=== PATIENT | female | born 1980 | race Caucasian/White ===

== ENCOUNTER 2024-07-12 07:03 | Observation (INO) ==
--- NOTE | 2024-07-02 13:17 | Anesthesiology Consultation ---
Date of Service July 02, 2024 Assessment & Plan (1) Encounter for pre-operative examination: - Check test DOS - Infectious disease screening: Per assessment on 07/02/24- No known recent infectious disease contacts or current infectious disease symptoms. Chart Review Chart Review: Acceptable Risk for Surgery and Patient NOT seen in Pre Admission Testing History Surgery Operation Date: 04/19/24 08:50 Proposed Procedures p Exam Under Anesthesia, Dilation and Curettage - Anshul Trinh MD s Myosure Polypectomy, Novasure Endometrial Ablation - Anshul Trinh MD Operation Date: 07/12/24 07:00 Proposed Procedures p Total Laparoscopic Hysterectomy, Bilateral Salpingectomy and Cystoscopy, Possible Laparotomy - Anshul Trinh MD Height/Weight Height: 5 ft 5 in Weight: 107.501 kg Allergies Allergy/AdvReac Type Severity Reaction Status Date / Time No Known Allergies Allergy Verified 07/02/24 11:54 Medications Home Medications Medication Instructions Recorded Confirmed Last Taken bupropion HCl 150 mg tablet,12 hr 150 mg PO BID 07/02/24 07/02/24 Unknown sustained-release ferrous sulfate 325 mg (65 mg 325 mg PO QAM 07/02/24 07/02/24 Unknown iron) tablet,delayed release losartan 25 mg tablet 25 mg PO QAM 07/02/24 07/02/24 Unknown naltrexone 50 mg tablet 50 mg PO UD 07/02/24 07/02/24 Unknown omeprazole 20 mg tablet,delayed 20 mg PO QAM 07/02/24 07/02/24 Unknown release Past Medical History Medical History Anemia Arthritis GERD (gastroesophageal reflux disease) History of kidney stones no surgery required Hx of migraines Hypertension Past Family History Family History Other No family history of adverse response to anesthesia Past Surgical History Surgical History H/O wrist surgery left History of bilateral tubal ligation History of tooth extraction Social History Smoking Status: Current every day smoker Smoking cigarettes per day: 4 cig daily>advised Do You Dip or Chew Tobacco: No Hx Alcohol Use: No substance use type: does not use Testing Laboratory Results 06/20/24 WBC 8.86 H/H 12.7/39.6 PLATELETS 337 SODIUM 139 POTASSIUM 4.7 CHLORIDE 104 CO2 25 BUN 15 CREATININE 0.7 GLUCOSE 93
[~2024-07-12 07:03] MED LIST: LACTATED RINGER'S 1,000 ML IV SCH; LR 15ML/HR IV SCH
[2024-07-12] MEDS: SODIUM CHLORIDE 0.9% 1,000 ML IV SCH (08:31)
--- NOTE | 2024-07-12 08:40 | History & Physical Bridge Note ---
Date of Service July 12, 2024 History & Physical Bridge Note I have examined the patient, reviewed the History & Physical and in the interval since the performance of the History & Physical I have noted the following changes of clinical significance: no changes noted
[2024-07-12] MEDS ORDERED: MIDAZOLAM HCL 1 MG/ML 2ML VIAL ONE (08:53)
[2024-07-12] MEDS ORDERED: fentaNYL citrate PF 100 MCG/2 ML VIAL ONE ×2 (08:53→10:58)
[2024-07-12] MEDS ORDERED: ROCURONIUM BROMIDE 10 MG/ML 5 ML VIAL IV ONE ×3 (08:54→11:40)
[2024-07-12] MEDS ORDERED: PROPOFOL IV EMULSION 10 MG/ML 20 ML VIAL IV ONE (08:55)
[2024-07-12] MEDS ORDERED: DEXAMETHASONE SOD INJ 4 MG/ML VIAL ONE ×2 (08:59)
[2024-07-12] MEDS ORDERED: DROPERIDOL 5 MG/2 ML VIAL IV PRN (09:00)
[2024-07-12] MEDS ORDERED: ATROPINE SULFATE 0.1 MG/ML 10ML SYR IV PRN (09:00)
[2024-07-12] MEDS ORDERED: fentaNYL citrate PF 100 MCG/2 ML VIAL IV PRN (09:00)
[2024-07-12] MEDS ORDERED: ONDANSETRON INJ 2 MG/ML 2 ML VIAL ONE (09:00)
[2024-07-12] MEDS ORDERED: ePHEDrine sulfate 50 MG/ML AMP IV PRN (09:00)
[2024-07-12] MEDS: ceFAZolin 2000MG 2,000 MG/15 ML SYR IV SCH (09:24)
[2024-07-12] MEDS ORDERED: KETAMINE HCL 10MG/ML SYR ONE (09:32)
[2024-07-12] MEDS ORDERED: METHYLENE BLUE 0.5% 10 ML VIAL ONE (10:53)
[2024-07-12] MEDS ORDERED: SUGAMMADEX SODIUM 200 MG/2 ML VIAL IV ONE (11:20)
[2024-07-12] MEDS: BUPIVACAINE/EPINEPHRINE 0.5% MPF 1:200,000 30 ML VIAL ONE (11:22)
[2024-07-12] MEDS: FLOSEAL HEMOSTATIC MATRIX 10ML TOP ONE (11:22)
[2024-07-12] MEDS ORDERED: HYDROmorphone INJ 2 MG/ML SYR/VIAL ONE (12:04)
[2024-07-12] MEDS ORDERED: KETOROLAC 30 MG/ML VIAL ONE (12:19)
[2024-07-12] MEDS: DIATRIZOATE MEGLUMINE 30% 100ML VIAL INSTIL ONE (12:44)
--- NOTE | 2024-07-12 12:47 | Operative Report ---
[facility] Post Operative Report Pre & Post Diagnosis Operation Date: 07/12/24 08:50 Pre-Op Diagnosis: Menorrhagia, Endometrial Polyp on Ultrasound Post-Op Diagnosis: Menorrhagia, Endometrial Polyp on Ultrasound I identified the patient and participated in the time-out.: Yes Procedure Operation Date: 07/12/24 08:50 Actual Procedures p Total Laparoscopic Hysterectomy, Bilateral Salpingectomy and Cystoscopy(Bilateral) - Anshul Trinh MD s Cystoscopy, Left Retrogradepylogram with radiographic interpretation (Left) - Miles Inman MD Surgeon Miles Inman MD Senior Marketing Coordinator None Estimated Blood Loss 5 Findings See Below Normal left retrograde pyelogram with no narrowing or extravasation. Contrast completely drained from kidney. Specimens None Drains None Anesthesia Type General Complications none Indications 43-year-old female who is currently anesthetized in the OR for a laparoscopic hysterectomy and bilateral salpingectomy. JUNIOR DESIGNER did a cystoscopy at the end of the case and did not see urine effluxing from the left ureter so urology was consulted. Patient was already anesthetized so consent was implied as this was deemed emergent. Description of Procedure Patient was already anesthetized and laying supine on the table. Fuentes catheter been removed. I confirmed with the operating surgeon that the left side was the side of concern. I inserted a 21 Vincentian rigid cystoscope per urethra into the bladder. Cystoscopy revealed no lesions or concern for injury. Turned my attention to the left ureteral orifice and intubated this with a 5 Vincentian open- ended catheter. I shot a left retrograde pyelogram which showed no extravasation or narrowing. Contrast made it all the way up into the kidney. I then watched the contrast drained out of the ureter and shot several other films which showed all of the contrast draining out of the system. I did no concern for injury and suspect this was a peristalsis. I do not think there is any indication for stenting at this point. I turned my attention to thethe right ureteral orifice and did see this efflux of urine. Bladder was emptied and scope was removed. At this point I turned the case back over to JUNIOR DESIGNER. I attest to the content of the Intraoperative Record and any orders documented therein. Any exceptions are noted below.
[2024-07-12] MEDS ORDERED: oxyCODONE/ACETAMINOPHEN 5mg/325mg TAB PO PRN (13:15)
[2024-07-12] MEDS ORDERED: MAGNESIUM HYDROXIDE SUSP 30 ML UDC PO PRN (13:15)
[2024-07-12] MEDS ORDERED: KETOROLAC 30 MG/ML VIAL IV PRN (13:15)
[2024-07-12] MEDS ORDERED: ZOLPIDEM TARTRATE 5 MG TAB PO PRN (13:15)
--- NOTE | 2024-07-12 13:17 | Anesthesiology Progress Note ---
Date of Service July 12, 2024 Anesthesia Post Procedure Vital Signs Vital Signs: Temp Pulse Resp BP Pulse Ox O2 Del Method 07/12/24 08:12 36.8 C 89 20 148/93 H 98 Room Air Transfer of Care Handoff Completed per policy Notes Mental Status: alert / awake / arousable Patient Amnestic to Procedure: Yes Nausea / Vomiting: adequately controlled Pain: adequately controlled Airway Patency, RR, SpO2: stable & adequate BP & HR: stable & adequate Hydration State: stable & adequate Anesthetic Complications: no major complications apparent
--- NOTE | 2024-07-12 13:19 | Fluoroscopy Report ---
FL retrograde includes kub CLINICAL HISTORY: Cystoleft-sided cystourethrogram COMPARISON STUDY: None FLUOROSCOPY TIME: 11.0 seconds FLUOROSCOPY IMAGES: 14 EXPOSURE DOSE: 2.4539 mGy FINDINGS: Left-sided ureteroscope with injection of contrast. Filling defects are noted within the pr oximal left ureter suggestive of probable air bubbles. No extravasation of contrast identified to sug gest a ureteral injury. No hydronephrosis IMPRESSION: Fluoroscopic assistance as above. ACT 112: Negative or not required by law. Electronically signed by: Iron Starkey M.D. 07/12/2024 1:15 PM
--- NOTE | 2024-07-12 13:29 | Operative Report ---
Post Operative Report Pre & Post Diagnosis Operation Date: 07/12/24 08:50 Pre-Op Diagnosis: Menorrhagia, Endometrial Polyp on Ultrasound Post-Op Diagnosis: Menorrhagia, Endometrial Polyp on Ultrasound I identified the patient and participated in the time-out.: Yes Procedure Operation Date: 07/12/24 08:50 Actual Procedures p Total Laparoscopic Hysterectomy, Bilateral Salpingectomy and Cystoscopy(Bilateral) - Anshul Trinh MD s Cystoscopy, Left Retrogradepylogram(Left) - Miles Inman MD Surgeon Anshul Trinh MD Home Supervisor [place] PAC Estimated Blood Loss 5 Findings Consistent with Post-Op Diagnosis Normal female escutcheon. Cervix and vagina appear grossly normal. Laparoscopic findings showed a 14 to 16-week size uterus. Left and right tubes and ovaries appear grossly normal. Both ureters identified. Fluids Estimated blood loss is 5 mL. IV fluids 1300 mL Urine output 600 mL Specimens 1. Uterus with cervix. 2.Left and right fallopian tube. Drains None Anesthesia Type General Complications None Indications Menorrhagia. Patient declined medical treatment and ablation. Description of Procedure FINDINGS: DESCRIPTION OF PROCEDURE: The patient was prepped and draped in normal sterile fashion in the dorsal lithotomy position. Fuentes catheter was placed without difficulty. An [employer] RFID uterine manipulator was placed in the uterus to help with colpotomy. Attention was paid to the abdominal part of the procedure where a supraumbilical incision was made and carried down to the fascia. Brendan was used to grab the fascia. Veress needle was introduced into the abdomen at a 45-degree angle while tenting up the abdomen. Intra-abdominal placement was confirmed with a water-filled syringe. A water drop and suction test was performed. The abdomen was insufflated with CO2 gas. The Veress needle was removed and a 5 mm non bladed trocar was attached to a laparoscope was introduced into the abdomen under direct visualization. This was a non bladed trocar. Once inside the abdomen, laparoscope was repositioned. Inspection of the abdomen shows the find ings as dictated above. Three more accessory ports were placed, two 5 mm accessory ports were placed in the lower abdomen on the contralateral side, in addition, an 11 mm trocar was placed on the left upper quadrant. General inspection of the abdomen and pelvis was performed as dictated above. Left and right fallopian tubes, the ureters, uterosacrals, bowels were examined and identified. There is adhesions of the sigmoid colon to the left lateral wall which is carefully dissected using sharp scissors this is to help move the bowel out of the pelvics. LigaSure was passed through the left accessory port. The fallopian tube was identified and grabbed 4 cm from the cornua of the uterus with the LigaSure and transected. This was followed by opening of the left anterior leaf of the broad ligament. This allowed for fenestration of the posterior left broad ligament. The mid-section of the left fallopian tube, utero-ovarian and meso-ovarian pedicles were transected as well. Same procedure was performed on the contralateral side. The anterior broad ligament dissection was carried to the mid-section of the vesicouterine peritoneum over the bladder using the Harmonic scalpel. Same procedure was carried out on the contralateral side. The posterior broad ligament peritoneum was carefully dissected also from both sides over the uterosacral arch in order to displace the ureters laterally. Using traction and countertraction, the [place] retractor and irrigation probe was used to further dissect the bladder off the lower segment of the uterus. Bladder pillars and pubovesical fascia was dissected as well. Harmonic scalpel was used to obtain hemostasis where needed. Uterine manipulator was now palpable over the vaginal tissue. The right uterine pedicles were skeletonized and coagulated with the LigaSure. Good hemostasis was obtained. Same procedure was performed on the contralateral side. Cardinal ligaments were transected on both sides. Once good hemostasis was obtained, colpotomy was performed using the LigaSure hook from both sides. Uterus was removed through the vagina while still attached to the uterine manipulator. The bulb was attached to the uterine manipulator was reinserted into the vagina to establish pneumoperitoneum. With a grasper, the remaining section of the left ovary and tube were positioned anteromedially. The left fallopian tube is transected with the LigaSure leaving behind the left ovary. The transection of the fallopian tube is performed close to the tube in order to preserve vascular flow to the ovary. . Same procedure was performed on the right once again leaving behind the right ovary. Both left and right fallopian tubes will be sent with the specimen to pathology for biological analysis. The uterus with cervix and both fallopian tubes are removed through the vagina. EndoStitch closure device was passed through the 11 mm port on the left. Using the [place] grasper for traction, colpotomy closure was performed. The uterosacral ligaments incorporated into the closure in order to decrease the risk of prolapse. Lapro ties were used with the EndoStitch. The 11-mm trocar site was closed with a Caesar-Teran under direct visualization. Attention was paid to the cystoscopy part of the procedure where a cystoscope was introduced into the bladder. There are no sutures seen in the bladder. There were no gross blood seen in the bladder as well. The bubble sign is noted showing the bladder was a close cavity. The right ureter showed reflux of urine into the bladder. However there was no E flux from the left side. Urology was therefore called in to evaluate patient and to rule out any urethral injury. Dr. Miles Inman performed a left retropyelogram with cystoscopy and confirmed no damage to the left ureter. He will dictate this part of the procedure. Will dictate this part of the procedure. All cystoscopy instruments were removed. Attention was paid back to the abdominal part of the procedure where the skin incisions are closed with Dermabond, except for the 11-mm trocar site, which was closed with 4-0 Monocryl. The patient was returned to recovery in stable condition. Inspection of the vagina shows the vaginal cuff was intact. All instruments were removed from the vagina and the bladder and accounted for x2. I attest to the content of the Intraoperative Record and any orders documented therein. Any exceptions are noted below. Home Supervisor was necessary for retraction and manipulation of instruments in order to provide for a safe operation
--- NOTE | 2024-07-12 14:04 | Anesthesiology Progress Note ---
Date of Service July 12, 2024 Anesthesia Post Procedure Vital Signs Vital Signs: Temp Pulse Pulse Resp BP BP Pulse Ox 07/12/24 13:50 83 22 132/91 100 07/12/24 13:35 36.5 C 81 20 152/89 H 100 07/12/24 13:25 80 20 152/83 H 100 07/12/24 13:15 84 18 122/93 100 07/12/24 13:05 91 H 19 146/96 H 100 07/12/24 12:58 36.4 C L 101 H 21 155/82 H 100 07/12/24 08:12 36.8 C 89 20 148/93 H 98 O2 Del Method 07/12/24 13:50 Room Air 07/12/24 13:35 Room Air 07/12/24 13:25 Room Air 07/12/24 13:15 Room Air 07/12/24 13:05 Room Air 07/12/24 12:58 Room Air 07/12/24 08:12 Room Air Pain Intensity Left Eye: Pain Intensity: 4 Transfer of Care Handoff Completed per policy Notes Mental Status: alert / awake / arousable and participated in evaluation Patient Amnestic to Procedure: Yes Nausea / Vomiting: adequately controlled Pain: adequately controlled Airway Patency, RR, SpO2: stable & adequate BP & HR: stable & adequate Hydration State: stable & adequate Anesthetic Complications: see Notes below and Pt Satisfied with anesthetic care Notes: on arrival to [facility], pt kept trying to rub her left eyes. despite repeated efforts from nursing to get the patient to stop, she kept trying. pt now with pain in left eye that is sensitive to light. pt is having difficulty opening eye. most likely corneal abrasion. Best to just begin treatment because more detailed exam by me is not possible (olmos lamp) and ease/effectiveness of treatment. pt given artificial tears and erythromycin opthalmic ointment tid to left eye x [address] pagan aware
[2024-07-12] MEDS: ONDANSETRON INJ 2 MG/ML 2 ML VIAL IV PRN (15:03)
[2024-07-12] MEDS: ERYTHROMYCIN OP OINT 5 MG/GM 3.5 GM TUBE OPL SCH (16:09)
[2024-07-12] MEDS: SIMETHICONE 80 MG CHEW PO PRN (17:25)
[2024-07-12] MEDS: PROMETHAZINE 12.5 MG/50.5 ML BAG IV PRN (17:49)
[2024-07-12 20:35] LABS: Hematocrit (blood only) 36.5 % (37.0-47.0); Hemoglobin 11.8 g/dl (12.0-16.0)
[2024-07-12] MEDS: DOCUSATE SODIUM 100 MG CAP PO SCH (21:09)
[2024-07-13 06:33] LABS: Basophils # (auto) 0.03 K/uL (0.00-0.20); Basophils % (auto) 0.3 %; Hematocrit (blood only) 35.4 % (37.0-47.0); Hemoglobin 11.4 g/dl (12.0-16.0); Immature Granulocytes # (auto) 0.03 K/uL (0.01-0.20); Immature Granulocytes % (auto) 0.3 %; Lymphocytes % (auto) 9.3 %; Mean Corpuscular Hemoglobin 25.9 pg (25.0-34.0); Mean Corpuscular Hgb Conc 32.2 g/dL (32.0-36.0); Mean Corpuscular Volume 80.5 fL (80.0-100.0); Mean Platelet Volume 10.4 fL (9.4-12.4); Monocytes # (auto) 0.64 K/uL (0.11-0.59); Monocytes % (auto) 6.6 %; Neutrophils # (auto) 8.12 K/uL (1.40-6.50); Neutrophils % (auto) 83.5 %; Platelet Count 330 K/uL (130-400); RDW Coefficient of Variation 16.2 % (11.5-14.5); RDW Standard Deviation 47.4 fL (36.4-46.3); White Blood Count 9.72 K/ul (4.8-10.8)
[2024-07-13] MEDS: IBUPROFEN 600 MG TAB PO PRN (08:12)
--- NOTE | 2024-07-13 08:40 | Urology Progress Note ---
Date of Service July 13, 2024 Assessment & Plan (1) S/P cystoscopy: Plan 43-year-old female who is status post laparoscopic hysterectomy BSO on 07/12/2024. There is concern for left ureteral injury so I was intraoperatively consulted and performed a cystoscopy with left retrograde pyelogram which showed normal anatomy. Patient has no flank pain, hematuria or issues voiding Discussed intraoperative findings with patient No urologic follow-up necessary. Urology to sign off. Stable to go home from a urologic perspective Admission and Anticipated Discharge Date Admission Date: July 12, 2024 Subjective 43-year-old female who is status post laparoscopic hysterectomy BSO on 07/12/2024. There is concern for left ureteral injury so I was intraoperatively consulted and performed a cystoscopy with left retrograde pyelogram which showed normal anatomy. Patient is afebrile. Mildly tachycardic with a heart rate of the 100 labs this morning show hemoglobin of 11.4. No kidney function was tested. Patient denies any flank pain, hematuria or difficulty voiding. Physical Exam Physical Exam: General: Alert and oriented, no acute distress HEENT: Normocephalic, mucous membranes moist Pulmonary: Nonlabored respirations Abdomen: Nondistended Extremities: Moves all 4 spontaneously Neuro: No gross deficits Skin: Warm, dry, no rashes noted Results & Data Vital Signs (Past 12 Hours) Vital Signs Temp Pulse Pulse Resp BP Pulse Ox O2 Del Method 07/13/24 03:30 37.5 C 100 H 18 146/80 H 95 Room Air 07/12/24 23:20 37.5 C 86 18 147/86 H 97 Room Air PG Care Time/CCT Total # of Minutes Spent Total Time Spent with Patient: Total time spent is greater than 50% in coordination of care (as documented) at patient's floor/unit and/or counseling patient: Coding Level of Care Code 06465 SUB INP/OBS CARE 2/35MIN Diagnoses S/P cystoscopy Z98.890
--- NOTE | 2024-07-13 10:14 | Obstetrical Progress Note ---
Date of Service July 13, 2024 Assessment & Plan (1) S/P cystoscopy: (2) Encounter for pre-operative examination: Physical Exam Constitutional WD/WN, vitals as above Eyes PERRL, conjunctivae normal, anicteric sclerae ENMT external ear and nose normal, oropharynx normal Neck trachea midline, no thyromegaly Respiratory normal respiratory effort, lungs clear to auscultation Cardiovascular RRR, no murmur, no edema Chest (Breasts) normal inspection/palpation of breasts Gastrointestinal (Abdomen) normal bowel sounds, soft, nontender, no hepatosplenomegaly Musculoskeletal no cyanosis or clubbing, extremities motor strength 5/5 Skin + incision (Incision clean,dry and intact) Neurologic patellar DTR's 2+ bilat, sensation intact Psychiatric A+Ox3, euthymic affect Genitourinary no vaginal lesions, no adnexal mass Lymphatic no cervical or axillary lymphadenopathy Results & Data Vital Signs (Past 12 Hours) Vital Signs Temp Pulse Pulse Resp BP Pulse Ox O2 Del Method 07/13/24 08:09 36.7 C 92 H 16 139/78 97 Room Air 07/13/24 03:30 37.5 C 100 H 18 146/80 H 95 Room Air 07/12/24 23:20 37.5 C 86 18 147/86 H 97 Room Air
--- NOTE | 2024-07-13 10:20 | Discharge Summary ---
Date of Service July 13, 2024 Admission HPI Per Admitting Provider As per HPI Discharge Data Procedures Performed Operation Date: 07/12/24 08:50 Actual Procedures p Total Laparoscopic Hysterectomy, Bilateral Salpingectomy and Cystoscopy(Bilateral) - Anshul Trinh MD s Cystoscopy, Left Retrogradepylogram(Left) - Miles Inman MD Hospital Course (1) Postop check: (2) S/P cystoscopy: (3) Encounter for pre-operative examination: Plan Post op course was unremarkable and pt is discharges home in stable condition. Discharge instructions including medications,diet, activity and follow up appointments are reviewed with pt.
[2024-07-13 10:39] LABS: Albumin Globulin Ratio 1.3 (0.9-2); Albumin Level 3.4 gm/dl (3.4-5.0); BUN Creatinine Ratio 15.4 (10-20); Bilirubin,Total 0.5 mg/dl (0.2-1.0); Calcium 8.1 mg/dl (8.6-10.3); Creatinine Clr Calc Pharmacy 135.7 ml/min; Globulin 2.6 gm/dl (2.5-4.0); Potassium 3.2 mmol/L (3.5-5.1)
== END 2024-07-13 10:45 | disposition home or self-care (01) ==
LOC: 4E1 07:03 → ASU 07:03